=== PATIENT | female | born 2005 | race Caucasian/White ===

== ENCOUNTER 2023-02-20 08:12 | Outpatient (CLI) | payer BC, SELFPAY ==
--- NOTE | 2023-02-20 08:15 | CRLHL7_ITS ---
For Patients: As a result of the Cures Act, medical imaging exams and procedure reports are released immediately into your electronic medical record. You may view this report before your referring provider. If you have questions, please contact your health care provider. INDICATION: First trimester scan, establish dates. COMPARISON: None. TECHNIQUE: Real-time murrell-scale imaging of the pelvis was performed. FINDINGS: Sonographic imaging demonstrates a single living intrauterine gestation. The embryo demonstrates a regular cardiac rate measuring 167 beats per minute. The embryo`s crown-rump length measurement of 1.9 cm corresponds to a gestational age of 8 weeks 3 days with a sonographic due date of 09/29/2023. There is a normal-appearing yolk sac. There are no gross abnormalities noted within the embryo at this early state of development. The gestational sac has a normal appearance. There is no evidence of a perigestational hemorrhage. The amount of fluid within the sac appears appropriate for gestational age. The cervix is closed. The myometrium appears normal. The ovaries are of normal size. Corpus luteal cyst right ovary. There are no suspicious fluid collections noted in the cul-de-sac. IMPRESSION: Normal first trimester OB ultrasound exam. Gestational age calculated at 8 weeks 3 days with a sonographic due date of 09/29/2023. Dictated by Phong Charles MD @ 02/20/2023 9:04:40 AM (Electronically Signed)
== END 2023-02-20 08:13 | disposition home or self-care (01) ==
LOC: US 08:16
PROVIDERS: Visit Provider Registered Nurse
DX: Z34.91 Encounter for supervision of normal pregnancy, unspecified, first trimester (principal); Z3A.09 9 weeks gestation of pregnancy
CPT/HCPCS: 76817; 86703; 86803; 86850; 86900; 86901; 87340; 87491; 87591

== ENCOUNTER 2023-04-16 10:43 | Outpatient (CLI) | payer BC, SELFPAY | END 2023-04-16 10:44 | disposition home or self-care (01) | LOC: NFLDREF 04-17 07:32 | PROVIDERS: Visit Provider Obstetrics & Gynecology | DX: Z34.92 Encounter for supervision of normal pregnancy, unspecified, second trimester (principal); R82.71 Bacteriuria; Z3A.16 16 weeks gestation of pregnancy | CPT/HCPCS: 87086; 87186 ==

== ENCOUNTER 2023-05-15 12:11 | Outpatient (CLI) | payer BC, SELFPAY ==
--- NOTE | 2023-05-15 12:15 | CRLHL7_ITS ---
For Patients: As a result of the Century Cures Act, medical imaging exams and procedure reports are released immediately into your electronic medical record. You may view this report before your referring provider. If you have questions, please contact your health care provider. INDICATION: Evaluate anatomy. COMPARISON: 02/20/2023 TECHNIQUE: Real time murrell scale imaging of the fetus was performed as well as color Doppler analysis of the umbilical vessels. FINDINGS: Sonographic imaging demonstrates a single living intrauterine gestation. Fetus demonstrates a regular cardiac rate of 147 beats per minute. Fetus has a variable position. The placenta lies fundal posterior without evidence of placenta previa. The edge of the placenta is located 6.9 cm from the internal cervical os. Amniotic fluid volume appears normal. Single deepest vertical pocket: 4.8 cm. The cervix is closed and measures 3.7 cm in length. The composite ultrasound gestational age is calculated at 20 weeks 1 day with an estimated sonographic due date of 10/01/2023. The estimated weight is 327 grams which lies at the 24th %. The following biometric measurements were obtained: Biparietal diameter: 4.7 cm/20 weeks 2 days 44th% Head circumference: 17.6 cm/20 weeks 1 day 27th% Abdominal circumference: 14.8 cm/20 weeks 0 days 31st% Femur length: 3.2 cm/20 weeks 0 days 26th% The HC/AC ratio measures: 1.19 range (1.07-1.25) On anatomic survey, there is a normal appearance of the cerebral ventricles, cavum septi pellucidi, cisterna magna and cerebellum. The nose, lips, and facial profile appear normal. The cervical, thoracic and lumbar spine are well visualized and appear normal. There is a normal four-chamber heart view and the left and right ventricular outflow tracts appear normal. The diaphragm and stomach appear normal. The bladder is normal. Pelviectasis noted bilaterally measuring 4 millimeters. There is a normal three-vessel cord and cord insertion site. The four extremities appear normal. IMPRESSION: Bilateral renal pelviectasis measuring 4 millimeters. Remainder of the anatomic survey is normal. Follow-up in the 3rd trimester recommended. Concordance of clinical and sonographic dating. Remainder of the anatomic survey is normal. Dictated by Phong Charles MD @ 05/16/2023 10:03:58 AM (Electronically Signed)
== END 2023-05-15 12:12 | disposition home or self-care (01) ==
LOC: US 12:11
PROVIDERS: Visit Provider Obstetrics & Gynecology
DX: Z34.92 Encounter for supervision of normal pregnancy, unspecified, second trimester (principal); Z3A.20 20 weeks gestation of pregnancy
CPT/HCPCS: 76805; 87086

== ENCOUNTER 2023-07-24 10:19 | Outpatient (CLI) | payer BC, SELFPAY | END 2023-07-24 10:20 | disposition home or self-care (01) | LOC: NFLDREF 10:20 | PROVIDERS: Visit Provider Advanced Practice Midwife | DX: O26.893 Other specified pregnancy related conditions, third trimester (principal); Z67.91 Unspecified blood type, Rh negative; Z3A.29 29 weeks gestation of pregnancy | CPT/HCPCS: 86592; 86850; J2791 ==

== ENCOUNTER 2023-07-31 09:42 | Outpatient (CLI) | payer BC, SELFPAY ==
--- NOTE | 2023-07-31 09:45 | CRLHL7_ITS ---
For Patients: As a result of the Century Cures Act, medical imaging exams and procedure reports are released immediately into your electronic medical record. You may view this report before your referring provider. If you have questions, please contact your health care provider. OB ULTRASOUND, 07/31/2023 NIURKA by US: 09/29/2023. GA: 31 w, 3 d. Single. INDICATION: Encounter for supervision of normal first . CERVIX: Not visualized. POSITIONING: Vertex. AMNIOTIC FLUID: 4.7 cm. PLACENTA: Technique: Transabdominal. PLACENTA POSITION: Anterior. DOPPLER: heart rate: 143 bpm. Biometry: BPD: 8.0 cm. 32 w, 0 d, 57 percent. HC: 29.1 cm. 32 w, 0 d, 30 percent. AC: 27.6 cm. 31 w, 5 d, 55 percent. FL: 6.0 cm. 31 w, 1 d, 29 percent. FL/AC ratio: 21.69 percent. HC/AC ratio: 1.05. EFW: 1797 g. Weight: 3 lbs, 15 oz. age by this US: 31 w, 5 d. NIURKA by this US: 09/27/2023. Percentile by NIURKA: 43 percent. COMMENT: Bilateral renal pelves measure 2 mm currently. IMPRESSION: Single live intrauterine gestation. Renal pelves bilaterally measure 2 mm currently. No findings for pelviectasis. Priscila Goodwin M.D. Diagnostic/Breast Radiologist [email or web address] LAVERNE/rolly lofton/Dictated by: Priscila Goodwin MD @ 08/02/2023 8:19:00 AM (Electronically Signed)
== END 2023-07-31 09:43 | disposition home or self-care (01) ==
LOC: US 09:42
PROVIDERS: Visit Provider Advanced Practice Midwife
DX: Z34.03 Encounter for supervision of normal first pregnancy, third trimester (principal); Z3A.31 31 weeks gestation of pregnancy
CPT/HCPCS: 76816

== ENCOUNTER 2023-08-11 06:32 | Emergency (ER) | payer BC, SELFPAY ==
[2023-08-11 06:54] VITALS: BP 121/72; PULSE 112; RESP 16; TEMP 36.7; O2SAT 99; BMI 27.5
--- NOTE | 2023-08-11 07:18 | ED.GENADULT ---
HPI - General Adult General Chief complaint: Cough Stated complaint: cough, trouble breathing Time Seen by Provider: 08/11/23 07:18 History of Present Illness HPI narrative: Reporting a cold for a week . Last night coughing increased and SOB, became difficult at times. Endorsing a HERNANDEZ. Mucus production, clear/greenish. No at home COVID tests. No underlying pulm conditions . Pt is , 33 weeks 17-year-old young woman presenting to the emergency department concern of cough. Related Data Home Medications Medication Instructions Recorded Confirmed acetaminophen 500 mg tablet 1,000 mg PO Q6H PRN 02/20/23 08/11/23 (Tylenol Extra Strength) docosahexaenoic acid 200 mg mg PO 02/20/23 07/31/23 capsule ( DHA) Previous Rx's Medication Instructions Recorded sertraline 100 mg tablet 100 mg PO QDAY #90 tabs 04/16/23 metoclopramide HCl 10 mg tablet 10 mg PO Q6-8H PRN headache #20 07/17/23 (Reglan) tabs Allergies Allergy/AdvReac Type Severity Reaction Status Date / Time No Known Drug Allergies Allergy Verified 08/11/23 07:00 [facility] Medical History Asthma ?J45.909 - Unspecified asthma, uncomplicated (ICD-10) Social History Narrative: Lives in [place]. Works at [employer]. Smoking Status: Never smoker Little interest or pleasure in doing things: several days Feeling down, depressed, or hopeless: several days Exam Const: Vital Signs, click to edit/add: Vital Signs - 24 hr 08/11/23 06:54 Temperature 98.1 F Pulse Rate [Pulse Oximeter] 112 H Respiratory Rate 16 Blood Pressure [Ri ght Upper Arm] 121/72 Pulse Oximetry 99 Oxygen Delivery Me thod Room Air Course Vital Signs Vital signs: Initial Vital Signs Temperature 98.1 F 08/11/23 06:54 Temperature Source Temporal Artery Scan 08/11/23 06:54 Pulse Rate 112 H 08/11/23 06:54 Respiratory Rate 16 08/11/23 06:54 Blood Pressure 121/72 08/11/23 06:54 Blood Pressure Mean 88 08/11/23 06:54 Blood Pressure Position Sitting 08/11/23 06:54 Pulse Oximetry 99 08/11/23 06:54 Oxygen Delivery Method Room Air 08/11/23 06:54 Vital Signs Temperature 98.1 F 08/11/23 06:54 Pulse Rate 112 H 08/11/23 06:54 Respiratory Rate 16 08/11/23 06:54 Blood Pressure 121/72 08/11/23 06:54 Pulse Oximetry 99 08/11/23 06:54 Oxygen Delivery Method Room Air 08/11/23 06:54 Temperature 98.1 F 08/11/23 06:54 Pulse Rate 112 H 08/11/23 06:54 Respiratory Rate 16 08/11/23 06:54 Blood Pressure 121/72 08/11/23 06:54 Pulse Oximetry 99 08/11/23 06:54 Oxygen Delivery Method Room Air 08/11/23 06:54 Discharge Plan Discharge Prescriptions: No Action DHA 200 mg capsule PO acetaminophen [Tylenol Extra Strength] 500 mg tablet 1,000 mg PO Q6H PRN sertraline 100 mg tablet 100 mg PO QDAY Qty: 90 0RF metoclopramide HCl [Reglan] 10 mg tablet 10 mg PO Q6-8H PRN (Reason: headache) Qty: 20 0RF Rx Instructions: Take with Tylenol. Follow Up/Referrals: Provider,Not a Local [Primary Care Provider] -
--- NOTE | 2023-08-11 07:45 | ED_ITS ---
HPI - General Adult General Time Seen by Provider: 07:45 Date Seen: 08/11/23 Chief complaint: Cough Stated complaint: cough, trouble breathing Time Seen by Provider: 08/11/23 07:18 Source: patient Mode of arrival: ambulatory Limitations: no limitations History of Present Illness HPI narrative: Patient is 17-year-old female who is about 33 weeks with anxiety depression history of migraine scoliosis, has a history of upper respiratory infection symptoms for the last week she has had runny nose congestion clear to greenish mucus production in her nose, she has had a cough. She has had some shortness of breath with exertion and even occasionally rest, she has no longer line lung history. She has had no history of bleeding or clotting problems , no swelling in her legs, no history of clotting. Patient has had upper respiratory symptoms over the last few days as mention. Related Data Home Medications Medication Instructions Recorded Confirmed acetaminophen 500 mg tablet 1,000 mg PO Q6H PRN 02/20/23 08/11/23 (Tylenol Extra Strength) docosahexaenoic acid 200 mg mg PO 02/20/23 07/31/23 capsule ( DHA) Previous Rx's Medication Instructions Recorded sertraline 100 mg tablet 100 mg PO QDAY #90 tabs 04/16/23 metoclopramide HCl 10 mg tablet 10 mg PO Q6-8H PRN headache #20 07/17/23 (Reglan) tabs Allergies Allergy/AdvReac Type Severity Reaction Status Date / Time No Known Drug Allergies Allergy Verified 08/11/23 07:00 Review of Systems Status of ROS: Reports: 6 or more systems reviewed and unremarkable except as noted in History and below [facility] Medical History Asthma ?J45.909 - Unspecified asthma, uncomplicated (ICD-10) Social History Narrative: Lives in [place]. Works at [employer]. Smoking Status: Never smoker Do you use any of these nicotine containing products: None How often do you have a drink containing alcohol: never How often do you have six or more drinks on one occasion: Never AUDIT-C Alcohol total score: 0 Non-prescribed substance use: denies use Little interest or pleasure in doing things: several days Feeling down, depressed, or hopeless: several days Exam Narrative: Exam Narrative: Objective: Vital signs are within normal limits, no temperature, O2 sat is 99% on room air HEENT is unremarkable Neck is normal Lungs are clear no rales or wheezing Heart rhythm regular no murmur No extremity swelling or edema, specifically no leg edema or swelling or tenderness Const: Vital Signs, click to edit/add: Vital Signs - 24 hr 08/11/23 06:54 Temperature 98.1 F Pulse Rate [Pulse Oximeter] 112 H Respiratory Rate 16 Blood Pressure [Ri t Upper Arm] 121/72 Pulse Oximetry 99 Oxygen Delivery Me thod Room Air Course Vital Signs Vital signs: Initial Vital Signs Temperature 98.1 F 08/11/23 06:54 Temperature Source Temporal Artery Scan 08/11/23 06:54 Pulse Rate 112 H 08/11/23 06:54 Respiratory Rate 16 08/11/23 06:54 Blood Pressure 121/72 08/11/23 06:54 Blood Pressure Mean 88 08/11/23 06:54 Blood Pressure Position Sitting 08/11/23 06:54 Pulse Oximetry 99 08/11/23 06:54 Oxygen Delivery Method Room Air 08/11/23 06:54 Vital Signs Temperature 98.1 F 08/11/23 06:54 Pulse Rate 112 H 08/11/23 06:54 Respiratory Rate 16 08/11/23 06:54 Blood Pressure 121/72 08/11/23 06:54 Pulse Oximetry 99 08/11/23 06:54 Oxygen Delivery Method Room Air 08/11/23 06:54 Temperature 98.1 F 08/11/23 06:54 Pulse Rate 112 H 08/11/23 06:54 Respiratory Rate 16 08/11/23 06:54 Blood Pressure 121/72 08/11/23 06:54 Pulse Oximetry 99 08/11/23 06:54 Oxygen Delivery Method Room Air 08/11/23 06:54 Medical Decision Making MDM Narrative Medical decision making narrative: [age] year white female about 33 weeks with upper respiratory infection symptoms congestion, cough. At this point I think given her lungs exam is clear no O2 sat is 99% I would recommended influenza/COVID/RSV test. We can call them with results when they can update her OBGYN with the results and report. Recommend steam, showers, symptomatic measures, hot fluids. Patient reports her baby's been active, no vaginal bleeding. Recommend follow up by phone with OB in next 48 hours. Return to ED sooner problems concerns worsening. Given the history upper respiratory infection and I do not feel concerned about PE or other intrapulmonary process. I think the benefit of doing an x-ray would be outweighed by the risk of radiation and I do not think that is necessary at this time. We will call them with results of their viral studies. Light activity recommend Lab Data Labs: Lab Results 08/11/23 Range/Units 07:47 SARS-CoV-2 (PCR) POSITIVE SARS-CoV-2 A (Negative) Influenza Type A (PCR) Negative PCR FLU A (Negative) Influenza Type B (PCR) Negative PCR FLU B (Negative) RSV (PCR) Negative PCR RSV (Negative) Discharge Plan Discharge Clinical Impression: Acute upper respiratory infection, Cough, Patient Disposition: Home w/ Parent or Adult Condition: Stable Additional Instructions: Rest, light activity, fluids, steam symptomatic measures such as getting in the shower to 3 times a day. We will call back with results here viral studies, you can update your regular OBGYN with those results as needed. Recommend you follow-up with OBGYN by phone within the next 48 hours for reassessment recommendations. Return to ED sooner problems or concerns Activity Level: Light activity Discharge Diet: Regular Prescriptions: No Action DHA 200 mg capsule PO acetaminophen [Tylenol Extra Strength] 500 mg tablet 1,000 mg PO Q6H PRN sertraline 100 mg tablet 100 mg PO QDAY Qty: 90 0RF metoclopramide HCl [Reglan] 10 mg tablet 10 mg PO Q6-8H PRN (Reason: headache) Qty: 20 0RF Rx Instructions: Take with Tylenol. Follow Up/Referrals: Provider,Not a Local [Primary Care Provider] - Stand Alone Forms: [employer] Info Instructions
[2023-08-11 08:34] LABS: PCR FLU A Negative PCR FLU A (Negative); PCR FLU B Negative PCR FLU B (Negative); PCR RSV Negative PCR RSV (Negative)
[2023-08-11 08:37] LABS: SARS PCR* POSITIVE SARS-CoV-2 (Negative)
--- NOTE | 2023-08-11 09:42 | ED.NURSE ---
PT contacted this AM at 0940 hours to confirm that she was COVID positive. Advised to reach out to her OB for advise on how to proceed with treatment. Patient stated understanding. No questions at this time.
== END 2023-08-11 08:19 | disposition home or self-care (01) ==
PROVIDERS: Emergency Provider Family Medicine
DX: J06.9 Acute upper respiratory infection, unspecified (principal); Z3A.33 33 weeks gestation of pregnancy
CPT/HCPCS: 87631; 99283

== ENCOUNTER 2023-09-04 10:11 | Outpatient (CLI) | payer BC, SELFPAY ==
[2023-09-05 10:15] LABS: Strep B DNA Probe Negative (Negative); Strep B Susceptibility Needed? No
== END 2023-09-04 10:12 | disposition home or self-care (01) ==
PROVIDERS: Visit Provider Advanced Practice Midwife
DX: Z34.93 Encounter for supervision of normal pregnancy, unspecified, third trimester (principal)
CPT/HCPCS: 87081; 87653

== ENCOUNTER 2023-10-07 06:52 | Inpatient (IN) | payer BC, SELFPAY ==
[2023-10-07] VITALS (67 sets, daily range): BP systolic 94–143; BP diastolic 44–94; PULSE 71–113; RESP 16–18; TEMP 36.4–37; O2SAT 83–100; BMI 29.9
--- NOTE | 2023-10-07 07:43 | P.LDBA_ITS ---
Subjective History of Present Illness Time Seen by Provider: 07:54 Date Seen: 10/07/23 Specific Issues/Plans G 1 P 0 Boyfriend: Jaswinder H&P done by Luis Alberto Traore CNM on 09/12/23 1. Depression and anxiety. PHQ= 15, NIMCO= 10. Declines therapy. Began sertralin e at 1st OB visit. Follow-up on mood at next OB: 04/16/23- PHQ=12. NIMCO=9. Increased sertraline to 100mg PHQ and nimco at next visit: PHQ9:5, NIMCO:6, 07/31- PHQ-12, NIMCO-12, declined change in meds or referral 09/12 readdressed mood, pt declines any change in plan Please encourage PHN visit and check on mood after delivery 2. Rh negative. Rhogam given 07/24 3. Asymptomatic bacteriuria at 1st OB: pansensitive E. coli. Treated w/ Macrobid. Repeat UC at next visit shows same isolate. Treated with Bactrim DS X 5 days . Repeat UC at 20 week visit: negative 4. Bilateral renal pelves 4 mm at 20 week anatomy scan. * Repeat US at 31.3 wks- resolved * Discussed option of NIPT on 05/17/23; may call to schedule if desired, declined. 5. Gap in visits no visit for 9 weeks late GCT-124 6.Anemia Hgb 10.1 at 30 weeks recommended iron supp QOD 7. Scoliosis dx as child no need for intervention per pt. COVID: Not vaccinated. Recommended. Declines 07/31/2023 Flu: declines TDAP: 07/17/2023 RSV: 09/04/2023 Comments: Karla is being admitted to Labor and Delivery for IOL for dates. She is a 17 year old G 1 P 0 at?41.1 weeks gestation. Her full history and physical was dictated by Cherelle Traore on 09/12/23. Please see this for details. Her partner is with her for support. She is undecided about pain management, but open to an epidural if needed. OB - Problem Based A/P Additional Plan (1) Encounter for induction of labor: Status: Acute (2) Supervision of normal first : Status: Acute (3) Anxiety and depression: Status: Acute (4) Scoliosis (and kyphoscoliosis), idiopathic: Status: Chronic Plan Assessment:?? at 41.1 weeks gestation?? GBS negative? IOL for dates complicated by: -depression & anxiety, treated with 100 mg of sertraline -gap in care, no visit X 9 weeks -anemia Labor complicated by: -scoliosis, diagnosed as a child, no interventions needed? ? Plan:?? * Admit to L & D? * Options reviewed, decision made to proceed with cytotec IOL at this time. * IV access: if needed per protocol or if epidural desired * Monitoring: Per protocol. * Candidate for analgesia of choice.? Undecided about pain management, but open to epidural if needed. * Anticipate progress to NVD Delivery/Labor/Induction Plan Plan: induction Induction method: per misoprostol protocol OB Exam Physical Exam Vital signs: Pulse BP Pulse Ox 102 H 130/80 98 10/07/23 07:23 10/07/23 07:23 10/07/23 07:26 Narrative: VSS, afebrile? General Appearance:? Calm, cooperative.? No acute distress.? Normal affect.? Psychiatric Exam: Alert and oriented, appropriate affect? HEENT: normocephalic, neck supple, full ROM? Respiratory:? Symmetrical chest wall movement.? Normal respiratory effort.? Clear to auscultation? Cardiac:? regular rate and rhythm? Abdomen: Gravid, non tender? Extremities:? normal and trace edema? Skin: warm, dry.??? Ctx:? mild, irregular madalyn mandeep ctx FHTs:? Baseline: 130.? Variability: min - mod.?? Accels: present.??? Decels:? rare late & early, resolved w/ position change SVE: FT, 0 station. Cervix posterior. ? Membranes: intact?? Detailed Labor and Delivery Exam Patient Gravid: Yes
[2023-10-07] MEDS: miSOPROStoL 25 MCG/0.25 TABLET VAGINAL ×2 (08:34→11:42)
--- NOTE | 2023-10-07 16:09 | PM.OBPNL ---
Subjective Time Seen by Provider: 15:45 Date Seen: 10/07/23 Narrative: Karla continues to feel frequent contractions, that have become stronger throughout the day. She has had 2 doses of cytotec, and the 3rd dose is due at this time. She is requesting pain medication, and we reviewed the options, including risks and benefits. Her partner and family are at bedside for support. Objective Exam: VSS, afebrile General Appearance:? Calm, cooperative. No acute distress. ? Psychiatric Exam: Alert and oriented, appropriate affect Abdomen: Gravid Ctx: ?Q 1-3 min apart. ?Mild - Moderate FHTs: Baseline: 145. Variability: moderate. Accels: present. Decels: none at this time. Rare late or variable noted earlier, appears to be r/t a specific position per RN. SVE: /0. mid position. Membranes: Intact ? Vital Signs: Last Vital Signs Temp 98.1 F 10/07/23 11:47 Pulse 107 H 10/07/23 15:47 Resp 16 10/07/23 11:47 BP 135/86 10/07/23 15:47 Pulse Ox 98 10/07/23 07:26 Plan Plan: Assessment:?? at 41.1 weeks gestation?? GBS negative? IOL for dates Patient is coping well with challenges of labor.?? Labor type: Induced, Early labor? complicated by: -depression & anxiety, treated with 100 mg of sertraline -gap in care, no visit X 9 weeks -anemia Labor complicated by: -scoliosis, diagnosed as a child, no interventions needed? ? Plan:?? Karla encouraged to try movement, tub, fentynal or nitrous at this time. Will place IV access. Epidural when desired. Hold 3rd cytotec dose at this time. She is aware to notify RN/CNM if contractions space out or decrease in intensity. Will continue to monitor for cervical change. Continue with routine intrapartum cares as ordered.?? Patient encouraged to move and change positions to promote physiologic labor and .?? Anticipate progress to NVD.
[2023-10-07 16:27] LABS: Basophils Percent Auto 0.3 % (0.0-3.0); Eosinophils Percent Auto 0.6 % (0.0-7.0); Hematocrit 31.7 % (33.0-51.0); Hemoglobin* 10.1 gm/dL (12.0-16.0); Immature Granulocytes Pct Auto 0.5 %; Lymphocytes Percent Auto 11.7 % (20-44); Mean Corpuscular HGB Conc 32 gm/dL (32-36); Mean Corpuscular Hemoglobin 26 pg (26-34); Mean Corpuscular Volume 82 fL (80-100); Monocytes Percent Auto 7.4 % (0.0-11.0); Neutrophils Percent Auto 79.5 % (42.0-72.0); RDW Coefficient of Variation % 13.7 % (11.5-15.5); Red Blood Count 3.87 m/uL (4.00-5.20); White Blood Count* 13.05 K/uL (4.50-11.00)
[2023-10-07] MEDS: fentaNYL 100 MCG/2 ML inj IVP (16:33)
[2023-10-07 16:59] LABS: Slide Review Reflex Yes
[2023-10-07 17:00] LABS: Slide Review Acceptable Review (Acceptable)
[2023-10-07] MEDS: LACTATED RINGERS 1000 ML 1,000 ML 1200 ML IV ×2 (17:39→18:31)
[2023-10-07] MEDS: ROPIVACAINE 0.2% 100 ml 100 ML 12 MG EPIDURAL (18:09)
--- NOTE | 2023-10-07 18:18 | PM.ANBPRC ---
[facility] Medical History Asthma ?J45.909 - Unspecified asthma, uncomplicated (ICD-10) Social History Narrative: Lives in [place]. Works at [employer]. What is your current living situation?: I presently have a place to live Problems where you live: no known problems In the past 12 months, utilities in danger of being shut off: no In past 12 months, lack of transportation kept you from medical appts, meetings, work, or getting things needed for daily living: no In the past 12 mos, have been you worried that your food would run out before you had money to buy more?: never true In the past 12 mos, the food you bought just didn't last and you didn't have money to buy more?: never true Smoking Status: Never smoker Do you use any of these nicotine containing products: None How often do you have a drink containing alcohol: never How often do you have six or more drinks on one occasion: Never AUDIT-C Alcohol total score: 0 Non-prescribed substance use: denies use How often does anyone, including family, friends and others, physically hurt you: never How often does anyone, including family, friends and others, insult or talk down to you: never How often does anyone, including family, friends and others, threaten you with harm: never How often does anyone, including family, friends and others, scream or curse at you: never Little interest or pleasure in doing things: several days Feeling down, depressed, or hopeless: several days Meds Home Medications and Allergies Home Medications Medication Instructions Recorded Confirmed Type acetaminophen 500 mg tablet 1,000 mg PO Q6H PRN 02/20/23 10/07/23 History (Tylenol Extra Strength) docosahexaenoic acid 200 mg 200 mg PO 02/20/23 10/02/23 History capsule ( DHA) Allergies Allergy/AdvReac Type Severity Reaction Status Date / Time No Known Drug Allergies Allergy Verified 10/07/23 07:30 Results Labs Labs: Laboratory Results - last 24 hr 10/07/23 16:18 WBC 13.05 H RBC 3.87 L Hgb 10.1 L Hct 31.7 L MCV 82 MCH 26 MCHC 32 RDW Coeff of [place] 13.7 Plt Count Not Reportable Neut % (Auto) 79.5 H Lymph % (Auto) 11.7 L [place] % (Auto) 7.4 Eos % (Auto) 0.6 Baso % (Auto) 0.3 Neut # (Auto) 10.40 H Lymph # (Auto) 1.50 [place] # (Auto) 1.00 H Eos # (Auto) 0.10 Baso # (Auto) 0.00 Abs Immat Gran (auto) 0.10 Imm/Tot Granulo (auto) 0.5 Diff Slide Review Acceptable Review Blood Type A Negative Antibody Screen POSITIVE Vital Signs Vital Signs: Last Vital Signs Temp 98.6 F 10/07/23 15:47 Pulse 87 10/07/23 18:17 Resp 18 10/07/23 15:47 BP 126/73 10/07/23 18:17 Pulse Ox 99 10/07/23 18:15 Weight: 79.288 kg Height: 162.56 cm Anesthesia Procedures Epidural Insertion Patient Location: OB Start Time: 17:30 Stop Time: 18:15 Start Date: 10/07/23 Stop Date: 10/07/23 Reason for Block: procedure for pain Patient Position: sitting Performed By: Ena Pandya Preanesthetic Checklist: IV checked, risks and benefits discussed, monitors and equipment checked, timeout performed and anesthesia consent Prep: chlorhexidine gluconate Monitoring: blood pressure monitoring, continuous pulse oximetry and heart rate Approach: midline Vertebral Space: lumbar (1-5) Epidural Technique: SEGUN saline Needle Type: Tuohy needle Injection Technique: continuous catheter Needle gauge: 17 Needle Length (cm): 10 cm Needle Insertion Depth (cm): 7 Catheter Gauge: 19 Catheter Type: multi-orifice Catheter at skin depth (cm): 13 Test Dose Result: negative and lidocaine 1.5% with epinephrine 1 to 200,000
[2023-10-07] MEDS: PHENYLEPHRINE 100 MCG/ML SYRINGE IVP ×4 (20:23→21:18)
[2023-10-07 20:26] LABS: Platelet Count* 209 K/uL (140-440)
[2023-10-07] MEDS: LACTATED RINGERS 1000 ML 1,000 ML 1145 ML IV ×2 (21:06→22:40)
--- NOTE | 2023-10-07 21:11 | P.OBPN_ITS ---
Subjective Time Seen by Provider: 21:11 Date Seen: 10/07/23 Narrative: Karla received her epidural, and then late decelerations were noted. Attempted to turn pt, and 3-4 min decel occurred, tal 70s. Pt helped to hands and knees, and fetus noted to be tachycardic with variable & late decels. RNs attempted to reposition pt, and another 4 min decel occurred, tal 80s. SROM, large amount of clear fluid occurred during this also. SVE repeated, 4100/-1 station. IUPC and scalp lead placed to better monitor. Dr. Luis Metzger and OR team also called in for possible . Pt also received multiple doses of phenylephrine during this and fluid bolus. FHTs now 145 with minimal va riability, late and early decelerations. Objective Exam: VSS, afebrile General Appearance:? Calm, cooperative. No acute distress. ? Psychiatric Exam: Alert and oriented, appropriate affect Abdomen: Gravid Ctx: ?Q 1-3 min apart. ? Moderate FHTs: Baseline: 145. Variability: minimal. Accels: none. Decels: Late, early and prolonged decels noted. SVE: /-1 Membranes: SROM, clear fluid. ? Vital Signs: Last Vital Signs Temp 98.4 F 10/07/23 19:16 Pulse 71 10/07/23 21:07 Resp 16 10/07/23 19:16 BP 107/56 L 10/07/23 21:07 Pulse Ox 99 10/07/23 20:29 Plan Plan: Assessment:?? at 41.1 weeks gestation?? GBS negative? IOL for dates Patient is coping well with challenges of labor.?? Labor type: Induced, Early labor? complicated by: -depression & anxiety, treated with 100 mg of sertraline -gap in care, no visit X 9 weeks -anemia Labor complicated by: -scoliosis, diagnosed as a child, no interventions needed? -late decelerations, periods of tachycardia, 2 prolonged decelerations. ? Plan:?? Dr. Luis Metzger called in with OR team to assess for . Pt and family aware of plan. IUPC and scalp lead placed to assess decels better and allow for positioning as needed while still tracing FHR. Will continue to monitor for decels and reposition as needed.
[2023-10-07] MEDS: CEFAZOLIN 2 GM INJ IVP (21:33)
--- NOTE | 2023-10-07 21:46 | P.OBCN_ITS ---
OB - CN: HPI Date of Consult Time Seen by Provider: 21:46 Date Seen: 10/07/23 Patient: [facility] Patient Consult date: 10/07/23 Requesting Physician: Beth Nassar CNM Primary Care Provider: Not a Local Provider Consult Narrative Reason for consult: nonreassuring FHTs Narrative: The patient is a 17 year old G 1 P 0 at 41 weeks 1 day gestation that was admitted to the Center on 10/07/23 for induction of labor for postdates. In the last hour the fetus has had repetitive late decelerations with minimal variability. Since being on the unit the baby has had now had marked variability with continued late decelerations. Recommended primary low- transverse for nonreassuring heart rate tracing. Consent form reviewed and signed. Please see Beth Nassar's notes for complete details. History History 1 Elective abortions Para 0 Spontaneous abortions Hx # Term Pregnancies Ectopic pregnancies Hx # Pregnancies Multiple births Number of Living Children 0 Labs Blood type: A (-) negative GBS status: negative OB Labs: Lab Assessment Start: 10/07/23 07:32 Freq: ONCE Status: Complete Protocol: [facility].OBGBS Activity Type Activity Date Activity User E-sign Co-sign Detail Recorded Client Recorded Date Recorded By Document 10/07/23 07:32 LG [id number] 10/07/23 07:35 LG 10/07/23 07:32 Lab Assessment GBS Status negative GBS Additional Criteria None Is Patient Allergic to Penicillin? No No Treatment Needed OK Are Labs Available Yes Maternal Blood Type A Maternal RH Factor Negative Evaluate Maternal Rubella Immune Status Immune Hepatitis B Surface Antigen Negative Maternal HIV Status Negative Maternal Syphillis (RPR) Status Negative [facility] Medical History (Updated 10/07/23 @ 21:49 by Ignacia Chand MD) Asthma ?J45.909 - Unspecified asthma, uncomplicated (ICD-10) Surgical History (Updated 10/07/23 @ 21:49 by Ignacia Chand MD) Status post primary low transverse section (10/07/23) ?Z98.891 - History of uterine scar from previous surgery (ICD-10) Social History Narrative: Lives in [place]. Works at [employer]. What is your current living situation?: I presently have a place to live Problems where you live: no known problems In the past 12 months, utilities in danger of being shut off: no In past 12 months, lack of transportation kept you from medical appts, meetings, work, or getting things needed for daily living: no In the past 12 mos, have been you worried that your food would run out before you had money to buy more?: never true In the past 12 mos, the food you bought just didn't last and you didn't have money to buy more?: never true Smoking Status: Never smoker Do you use any of these nicotine containing products: None How often do you have a drink containing alcohol: never How often do you have six or more drinks on one occasion: Never AUDIT-C Alcohol total score: 0 Non-prescribed substance use: denies use How often does anyone, including family, friends and others, physically hurt you : never How often does anyone, including family, friends and others, insult or talk down to you: never How often does anyone, including family, friends and others, threaten you with harm: never How often does anyone, including family, friends and others, scream or curse at you: never Little interest or pleasure in doing things: several days Feeling down, depressed, or hopeless: several days Meds Home Medications and Allergies Home Medications Medication Instructions Recorded Confirmed Type acetaminophen 500 mg tablet 1,000 mg PO Q6H PRN 02/20/23 10/07/23 History (Tylenol Extra Strength) docosahexaenoic acid 200 mg 200 mg PO 02/20/23 10/02/23 History capsule ( DHA) Allergies Allergy/AdvReac Type Severity Reaction Status Date / Time No Known Drug Allergies Allergy Verified 10/07/23 07:30 OB - H&P: Exam Physical Exam: Vital signs: Temp Pulse Resp BP Pulse Ox 98.3 F 85 17 112/57 L 99 10/07/23 21:03 10/07/23 21:41 10/07/23 21:03 10/07/23 21:41 10/07/23 20:29 Narrative: See Beth Nassar's notes for complete details. OB - Results Labs Labs: Short CBC 01/01/24 01/01/24 Range/Units 16:18 19:36 WBC 13.05 H (4.50-11.00) K/uL Hgb 10.1 L (12.0-16.0) gm/dL Hct 31.7 L (33.0-51.0) % Plt Count Not Reportable 209 OB - CN: A/P Assessment and Plan (1) Encounter for induction of labor: Status: Acute (2) Supervision of normal first : Status: Acute (3) Anxiety and depression: Status: Acute (4) Scoliosis (and kyphoscoliosis), idiopathic: Status: Chronic (5) intolerance to labor, delivered, current hospitalization: Status: Acute (6) Status post primary low transverse section: Problem details: Girl. Status: Acute Plan 1. Reviewed recommendation for primary low-transverse , consent form reviewed and signed.
[2023-10-07] MEDS: AZITHROMYCIN 500 MG in 0.9 % SODIUM CHLORIDE 250 ml 250 ML 255 MG IVPB (21:59)
--- NOTE | 2023-10-07 21:59 | P.PCN_ITS ---
Procedure Note Time Seen by Provider: 22:58 Date Seen: 10/07/23 Date of procedure: 10/07/23 Will [facility] bill your pro fee for this procedure?: Yes Procedure: Preoperative diagnosis: 17-year-old 1 para 0 at 41 and 1/7 weeks with nonreassuring heart rate tracing Postoperative diagnosis: Same Procedure: Primary low-transverse section Anesthesia: Epidural Surgeon: Ignacia Chand MD Travel Med Surg Rn: Not applicable Quantitative blood loss: 1210 mL IV Fluid: 1300 mL UOP: 300 mL Specimen: Placenta to pathology Drain(s): Miranda to gravity Findings: A live female was delivered from the direct OP position at 10:16 p.m. Apgars were 8 at 1 min and 9 at 5 min, respectively. Infant weight: 7 lb 15 oz. Nuchal cord(s): No. The placenta was delivered spontaneously and complete at 10:18 p.m. Amniotic fluid: Clear. Normal uterus, fallopian tubes and ovaries were noted. Other findings: Significant uterine atony after delivery of the placenta treated with 40 units Pitocin in 1 L IV fluid wide open, 1 dose Methergine 0.2 mg IM and Bakri balloon placement with 200 mL of saline. Procedure: Karla was taken to the OR where epidural anesthetic was found be adequate. A Miranda catheter was placed. The patient was then placed in the dorsal supine position with a leftward tilt. She was then prepped and draped in a normal sterile manner. A Pfannenstiel skin incision was made and carried through sharply to the underlying layer of fascia. Fascia was incised in the midline and this incision carried laterally with Cummins scissors. The superior aspect of fascial incision was grasped with Lc clamps, tented up, and the rectus muscles dissected off with a combination of blunt and sharp dissection. The inferior aspect of the fascial incision not dissected off the rectus muscles. The rectus muscles were in the midline. The peritoneum was entered bluntly. This opening was extended bluntly. An Cecil-O self-retaining retractor was placed. A bladder flap was not created. Uterus was incised in a low transverse manner in the midline. This incision carried laterally with blunt pressure on the inferior and superior aspects of the uterine incision. The amniotic sac was ruptured. The infant's head and body was delivered atraumatically. The cord was clamped 35 seconds after delivery. The infant was shown to the patient and her support person and then handed to waiting pediatric and nursing staff. The placenta was delivered spontaneously. The uterus was cleared of clots and debris. Uterine atony was noted with treatment stated in findings above. The uterine incision was re-approximated with the uterus in vivo. The 1st layer using 0-Vicryl in a running, locked manner. The 2nd layer using 0-Monocryl in a running, vertical, imbricating layer. Additional sutures needed for hemostasis: Yes, 1 suture of 2-0 chromic in a figure of X manner.. Excellent hemostasis was verified. The Cecil retractor was removed. The rectus muscles were not reapproximated. The rectus muscles were then closely inspected to verify hemostasis. Hemostasis was obtained with bipolar cautery. The fascia was then re-approximated using 0-Maxon loop in a running manner. The subcutaneous tissue was then irrigated with saline and hemostasis obtained with bipolar cautery. The subcutaneous tissue was re-approximated using 3-0 plain gut in a running manner. The skin was reapproximated using 4-0 Monocryl in a running subcuticular manner. Exofin skin adhesive and a Mepilex dressing were applied. The patient tolerated this procedure well. Sponge, lap and instrument counts were correct x2 active to the procedure. Patient was taken to the recovery area in stable condition. The patient received 2 g of IV Ancef and 500 mg azithromycin IV to prior``````````` skin incision.
--- NOTE | 2023-10-07 22:12 | W.ANESCHARGE ---
Anesthesia Charges Start Date/Time Anesthesia Start Date: 10/07/23 Anesthesia Start Time: 21:50 Stop Date/Time Anesthesia Stop Date: 10/07/23 Anesthesia Stop Time: 23:20 Summary Emergency: [employer]
[2023-10-07] MEDS: KETOROLAC 30 MG/ML inj IVP (22:41)
--- NOTE | 2023-10-07 22:47 | P.NB_ITS ---
Nerve Block Nerve Block Time Seen by Provider: 23:02 Date Seen: 10/07/23 Type of block requested by surgeon for post-operative analgesia: TAP Side: bilateral Time out performed: Yes Verification of patient name: Yes Verification of date of : Yes Name of person performing procedure: Henriettauc Continuous monitoring Was continuous monitoring of O2 sat, B/P, monitoring manager, recorded every 15 minutes?: Yes Procedure Checklist: sterile prep, needles and gloves Ultrasound guided. Images saved: Yes Medications given in 5ml increments after negative aspiration: Marcaine %: 0.25 mL: 30 Needle gauge: 21 and Exparel mL: 10 Needle gauge: 21 Patient tolerated procedure well: Yes Block Charges Block Charge (with Pro Fee): TAP Bilateral Use of Ultrasound Machine for Block: Yes- US Guidance/pain block
[2023-10-07] MEDS: miSOPROStoL 800 MCG/4 TABLET PR (23:05)
[2023-10-08] VITALS (39 sets, daily range): BP systolic 107–136; BP diastolic 67–90; PULSE 84–114; RESP 16; TEMP 36.6–37.8; O2SAT 97–100
[2023-10-08] MEDS: KETOROLAC 30 MG/ML inj IVP ×4 (04:16→23:10)
[2023-10-08] MEDS: ACETAMINOPHEN 500 MG TABLET 1000 MG PO (04:25)
[2023-10-08 06:50] LABS: Hemoglobin* 8.4 gm/dL (12.0-16.0)
--- NOTE | 2023-10-08 07:35 | P.OBPN_ITS ---
OB - PN:Subj Subjective Date Seen: 10/08/23 Patient comments OB post-: no complaints, pain well controlled and tolerating diet infant status: and doing well Narrative: Complications:? hemorrhage. Bakri in place, to be removed at 1000 today. The patient feels well.? The pain is well controlled with current medications.? She has no new complaints.? Urinary output is adequate and she is voiding without difficulty.? Has a good appetite, is tolerating a general diet, is not passing flatus, and has not had a bowel movement.? Has scant amount of rubra lochia.? She has not yet ambulated but plans to this morning.?She is . States that overall it is going well and the last feed baby latching without difficulty. OB - PN: Obj Exam Physical Exam: Vital signs: Temp Pulse Resp BP Pulse Ox O2 Del Method 98.2 F 101 H 16 118/77 99 Room Air 10/08/23 07:20 10/08/23 07:20 10/08/23 07:20 10/08/23 07:20 10/08/23 07:20 10/08/23 07:20 Narrative: GENERAL APPEARANCE:? normal affect, alert, no distress? MOOD:? appropriate? CHEST:? clear to auscultation and percussion? HEART:? regular rate and rhythm? ABDOMEN:? soft, non-tender the uterine fundus is U/2 and is appropriate for the stage of recovery.?Incision is covered by a dressing that is clean, dry and intact. Will be removed today. EXTREMITIES:? normal and no edema? Urinary Catheter Management: Urethral: Cath placed during this visit: no Reason for continuing: epidural catheter OB - PN: Obj Data Labs Labs: Laboratory Results - last 24 hr 10/07/23 10/07/23 10/08/23 16:18 19:36 06:40 WBC 13.05 H RBC 3.87 L Hgb 10.1 L 8.4 L Hct 31.7 L MCV 82 MCH 26 MCHC 32 RDW Coeff of [place] 13.7 Plt Count Not Reportable 209 Neut % (Auto) 79.5 H Lymph % (Auto) 11.7 L [place] % (Auto) 7.4 Eos % (Auto) 0.6 Baso % (Auto) 0.3 Neut # (Auto) 10.40 H Lymph # (Auto) 1.50 [place] # (Auto) 1.00 H Eos # (Auto) 0.10 Baso # (Auto) 0.00 Abs Immat Gran (auto) 0.10 Imm/Tot Granulo (auto) 0.5 Diff Slide Review Acceptable Review Blood Type A Negative Antibody Screen POSITIVE OB - PN: A/P Delivery Assessment and Plan (1) Anxiety and depression: Status: Acute (2) Scoliosis (and kyphoscoliosis), idiopathic: Status: Chronic (3) intolerance to labor, delivered, current hospitalization: Status: Acute (4) Status post primary low transverse section: Problem details: Girl. Status: Acute (5) Lactating mother: Status: Acute (6) care following delivery: Status: Acute (7) hemorrhage: Status: Acute Plan day: 1 Plan: routine care Comments: Remove Bakri today after 1000. Ambulate today. Anticipate discharge tomorrow or the following day per patient preference.
[2023-10-08] MEDS: SERTRALINE 50 MG TABLET 100 MG PO (11:17)
[2023-10-08] MEDS: FERROUS SULFATE 325 MG TABLET PO (11:17)
[2023-10-09 00:45] VITALS: BP 106/64; PULSE 96; RESP 16; TEMP 36.8; O2SAT 97
[2023-10-09] MEDS: KETOROLAC 30 MG/ML inj IVP (05:36)
[2023-10-09 07:55] VITALS: BP 107/67; PULSE 84; RESP 16; TEMP 36.8; O2SAT 99
[2023-10-09] MEDS: SERTRALINE 50 MG TABLET 100 MG PO (08:22)
--- NOTE | 2023-10-09 08:35 | PM.OBDSVD1 ---
DS: Providers Provider Date Seen: 10/09/23 Date of admission: 10/07/23 06:52 Primary care physician: Not a Local Provider Admitting Clinician: Beth Nassar CNM Consults: 10/07/23 21:10 Consult to Physician [CONS] Stat Comment: Consulting Provider: Ignacia Chand Has provider been notified: Yes Attending Physician on discharge: Lorie Dinh CNM DS: Diagnosis Discharge Diagnosis (1) care and examination immediately after delivery: Status: Acute (2) Lactating mother: Status: Acute (3) hemorrhage: Status: Acute (4) Status post primary low transverse section: Status: Acute Problem details: Girl. Exam Narrative: Exam Narrative: GENERAL APPEARANCE:? normal affect, alert, no distress MOOD:? appropriate CHEST:? clear to auscultation HEART:? regular rate and rhythm ABDOMEN:? soft, non-tender the uterine fundus is At Umbilicus, Midline and is appropriate for the stage of recovery. EXTREMITIES:? normal and trace edema INCISION: Dressing removed; Healing well, no surrounding erythema, abnormal induration or discharge Const: Vital Signs, click to edit/add: Vital Signs - 24 hr 10/08/23 09:33 10/08/23 10:33 10/08/23 11:33 Temperature Pulse Rate [Blood Pressure Cuff] Respiratory Rate 16 16 16 Blood Pressure [Ri ght Arm] Pulse Oximetry Oxygen Delivery Me thod 10/08/23 11:44 10/08/23 12:33 10/08/23 13:33 Temperature 98.3 F Pulse Rate [Blood Pressure Cuff] 114 H Respiratory Rate 16 16 16 Blood Pressure [Ri ght Arm] 119/77 Pulse Oximetry 97 Oxygen Delivery Me thod 10/08/23 14:33 10/08/23 15:33 10/08/23 15:34 Temperature 97.9 F Pulse Rate [Blood Pressure Cuff] 100 Respiratory Rate 16 16 16 Blood Pressure [Ri ght Arm] 108/71 Pulse Oximetry 97 Oxygen Delivery Me thod Room Air 10/08/23 16:33 10/08/23 17:33 10/08/23 18:33 Temperature Pulse Rate [Blood Pressure Cuff] Respiratory Rate 16 16 16 Blood Pressure [Ri ght Arm] Pulse Oximetry Oxygen Delivery Me thod 10/08/23 19:33 10/08/23 20:33 10/08/23 21:30 Temperature 98.6 F Pulse Rate [Blood Pressure Cuff] 90 Respiratory Rate 16 16 16 Blood Pressure [Ri ght Arm] 107/67 Pulse Oximetry 98 Oxygen Delivery Me thod Room Air 10/08/23 21:33 10/08/23 22:33 10/09/23 00:45 Temperature 98.2 F Pulse Rate [Blood Pressure Cuff] 96 Respiratory Rate 16 16 16 Blood Pressure [Ri ght Arm] 106/64 Pulse Oximetry 97 Oxygen Delivery Me thod Room Air 10/09/23 07:55 Temperature 98.2 F Pulse Rate [Blood Pressure Cuff] 84 Respiratory Rate 16 Blood Pressure [Ri ght Arm] 107/67 Pulse Oximetry 99 Oxygen Delivery Me thod Room Air Documenting provider has reviewed patient's vital signs: yes OB - DS: Summary Hospital Course Hospital Course: Karla is a 17 y.o. G 1 P 1 who was admitted to [facility] for induction of labor for post-dates. ?She had a section that was complicated by hemorrhage. The patient feels well. ?The pain is well controlled with current medications. ?She has no new complaints. ?She is breast feeding and reports things are going well. the patient has done well.? Vitals have been stable.? She has remained afebrile.? Has a good appetite, is tolerating a general diet. ?She is voiding without difficulty.? She is passing gas and has had a bowel movement.? She is ambulating and denies any dizziness.? Has small amount of rubra lochia. She is undecided on prevention. Problems: Anemia plan: Discharge home with baby. Follow up in 2 weeks and 6 weeks. , may see if needed Hgb 8.4. Iron supplement ordered orally every other day Peripartum Data Infant delivery method: Primary C/S; Labored Laceration description: None Procedures: Procedures Operation Date: 10/07/23 21:45 Actual Procedure Side Surgeon p Section Not Applicable Ignacia Chand MD complications: uterine atony (Bakri placed after delivery, bleeding WNL post-removal) [place] Gender: Female Discharge Plan: Home Status at Discharge Functional status at discharge: independent ambulation Overall status at discharge: patient is progressing back to baseline Time Spent with Patient Time attestation: Total time spent providing and/or coordinating discharge services: Time spent: Less than 30 minutes Discharge Plan Discharge Disposition: Home, Self-Care Date of Admission: 10/07/23 06:52 Attending Provider on Discharge: Lorie Dinh Consulting Providers: Ignacia Chand Primary Care Provider: Provider,Not a Local Condition: Stable Anticipated Discharge Date/Time: 10/09/23 12:00 Discharge Medications: New acetaminophen 500 mg Tablet 1,000 mg PO Q6H PRNQty: 0 0RF ferrous sulfate 325 mg (65 mg iron) Tablet 325 mg PO Q48H Qty: 60 0RF docusate sodium 100 mg Capsule 100 mg PO BID PRN (Reason: constipation) Qty: 90 0RF ibuprofen 600 mg Tablet 600 mg PO Q6H PRN (Reason: Pain) Qty: 60 0RF oxycodone 5 mg Tablet 5 - 10 mg PO Q4H PRN (Reason: Pain) Qty: 15 0RF Continued DHA 200 mg capsule 200 mg PO DAILY acetaminophen [Tylenol Extra Strength] 500 mg tablet 1,000 mg PO Q6H PRN metoclopramide HCl [Reglan] 10 mg tablet 10 mg PO Q6-8H PRN (Reason: headache) Qty: 20 0RF Rx Instructions: Take with Tylenol. sertraline 100 mg tablet 100 mg PO QDAY Qty: 90 0RF Discharge Orders: Discharge Order (Routine); Ordered 10/09/23 Ordered By: Lorie Dinh Patient Education: OB Over the Counter Medication Information, OB /Breast Feeding Additional Instructions: Discharge instructions were reviewed with the patient including signs and symptoms of infection and home going medications Lifting Restrictions: 20 pounds for 6 weeks No not submerge incision under water X 2 weeks? Nothing vaginally for 6 weeks: no tampons or intercourse Do not drive while taking narcotic pain medication(s) Off Work or School for 8 weeks 2-week visit: incision check, discuss feeding concerns, review control options and screen for anxiety/depression. 6-week visit for an annual exam. consultation services are available to all mothers and babies for the first year after delivery.? To make an appointment, please call [phone]. Activity Level: Activity as Tolerated Discharge Diet: Regular Follow Up Appointments: [facility] [Provider Group] Forms: MyHealth Info Instructions
== END 2023-10-09 14:55 | disposition home or self-care (01) | DRG 540 ==
PROVIDERS: Admitting Provider Advanced Practice Midwife; Visit Provider Obstetrics & Gynecology
PROC: 10D00Z1 Extraction of Products of Conception, Low, Open Approach (ICD-10-PCS; CPT 59514; principal; 2023-10-07 21:30)
DX: O48.0 Post-term pregnancy (principal); O99.344 Other mental disorders complicating childbirth; F41.9 Anxiety disorder, unspecified; F32.A Depression, unspecified; M41.20 Other idiopathic scoliosis, site unspecified; O76 Abnormality in fetal heart rate and rhythm complicating labor and delivery; O72.1 Other immediate postpartum hemorrhage; O90.81 Anemia of the puerperium; D64.9 Anemia, unspecified; G89.18 Other acute postprocedural pain; Z3A.41 41 weeks gestation of pregnancy; Z37.0 Single live birth
CPT/HCPCS: 01967; 01968; 36415; 59200; 64488; 76942; 85018; 85025; 85049; 85461; 86850; 86870; 86880; 86900; 86901; 88307; 99140; A9270; C9290; J0456; J0665; J0690; J1885; J2210; J2250; J2274; J2371; J2405; J2590; J2791; J2795; J3010; J7050; J7120

== ENCOUNTER 2024-01-29 09:33 | Outpatient (CLI) | payer BC, SELFPAY ==
--- OUTSIDE RECORDS SUMMARY | 2024-01-29 09:36 | XMS_ITS | Clinical Summary ---
Author Name Unknown Organization [facility] Address [address] [place] [id number] Care Team Providers Care Sliver Chopper Name Role Phone No Ref-Primary, Physician Primary Care Provider Allergies No known active allergies Medications Medication Sig Dispensed Refills Start Date End Date Status metoclopramide (REGLAN) 10 MG tablet Take 1 tablet (10 mg) by mouth 4 times daily as needed (headache or nausea) 20 tablet 03/01/2023 Active Social History Tobacco Use Types Packs/Day Years Used Date Smoking Tobacco: Never Assessed Adolescent Education Answer Date Record ed Getting School Help Needed Not on file 06/29 Sex and Gender Information Value Date Recorded Sex Assigned at Not on file Gender Identity Not on file Sexual Orientation Not on file Last Filed Vital Signs Vital Sign Reading Time Taken Comments Blood Pressure 116/58 03/01/2023 1:30 PM CDT Pulse 95 03/01/2023 1:30 PM CDT Temperature 36.4 ??C (97.5 ??F) 03/01/2023 11:46 AM C DT Respiratory Rate 16 03/01/2023 11:46 AM CDT Oxygen Saturation 100% 03/01/2023 1:30 PM CDT Inhaled Oxygen Concentration - - Weight 60 kg (132 lb 3.2 oz) 03/01/2023 11:46 AM CDT Height 162.6 cm (5' 4) 03/01/2023 11:46 AM CDT Body Mass Index 22.69 03/01/2023 11:46 AM CDT Plan of Treatment Health Maintenance Due Date Last Done Comments ADVANCE CARE PLANNING 2003 ANNUAL REVIEW OF HM ORDERS 2003 CHLAMYDIA SCREENING 2003 HIV SCREENING 2018 HPV IMMUNIZATION (1 - 3-dose series) 2018 HEPATITIS C SCREENING 2021 COVID-19 Vaccine ( season) 2023 INFLUENZA VACCINE (#1) 2023 PHQ-2 (once per calendar year) 2023 YEARLY PREVENTIVE VISIT 01/10/2024 01/09/2023 DTAP/TDAP/TD IMMUNIZATION (8 - Td or Tdap) 04/25/2031 04/25/2021, 10/19/2016, 06/02/2009, Additional history exists HEPATITIS B IMMUNIZATION Completed 005, 08/17/2004, 02/02/2004 Pneumococcal Vaccine: Pediatrics (0 to 5 Years) and At-Risk Patients (6 to 64 Years) Completed 12/01/2004, 10/10/2004, 08/17/2004, Additional history exists IPV IMMUNIZATION Completed 06/02/2009, 10/2007, 08/17/2004, Additional history exists MENINGITIS IMMUNIZATION Completed 04/25/2021, 10/19 RSV MONOCLONAL ANTIBODY Aged Out No l onger eligible based on patient's age to complete this topic Care Teams Sliver Chopper Relationship Specialty Start Date End Date No Ref-Primary, Physician PCP - General 03/01/23
--- OUTSIDE RECORDS SUMMARY | 2024-01-29 09:36 | XMS_ITS | Clinical Summary ---
Author Name Unknown Organization [email or web address] [facility] Address [place], [place] [address] Care Team Providers Care Radiation / Chemistry Technician Name Role Phone Kim Mancini NP Primary Care Provider Allergies No known active allergies Medications Medication Sig Dispensed Refills Start Date End Date Status escitalopram oxalate (LEXAPRO) 10 mg tabletIndications:Chloe r depressive disorder with current active episode, unspecified depression episode severity, unspecified whether recurrent Take 1 Tablet (10 mg) by mouth every morning. 30 Tablet 01/09/2023 Active levonorgestrel-ethinyl estradiol (SEASONALE) 0.15 mg-30 mcg (91) tabletIndications:BCP ( control pills) initiation Take 1 Tablet by mouth once daily. 91 Tablet 01/09/2023 Active Active Problems No known active problems Immunizations Name Administration Dates Next Due DTaP 06/02/2009, 8,10/10/2004,08/17/2004 ,02/02/2004 Hepatitis A (Peds) 06/02/2009 Hepatitis B, Unspecified 12/01/2004,08/17/2004,0 02/02/2004 Hib Conjugate, Unspecified 12/01/2004,08/17/2004 ,02/02/2004 Inactivated Polio Vaccine 06/02/2009,11/07/2007 MMR 06/02/2009,02/26/2005 Meningococcal Vaccine (Menactra) 04/25/2021 Meningococcal Vaccine (Menveo) 10/19/2016 Pneumococcal, Unspecified 12/01/2004,10/10/2004, 08/17/2004,02/02/2004 Polio Virus, Unspecified 08/17/2004,02/02/2004 Tdap 04/25/2021,10/19/2016 Varicella Vaccine 06/02/2009,11/07/2007 Family History Medical History Relation Name Comments No Known Problems Father No Known Problems Mother Relation Name Status Comments Father Alive Mother Alive Social History Tobacco Use Types Packs/Day Years Used Date Smoking Tobacco: Never Smokeless Tobacco: Never Tobacco Cessation:Counseling Given: Not Answered Alcohol Use Standard Drinks/Week Comments Never 0 (1 standard drink = 0.6 oz pur e alcohol) PHQ-2 Answer Date Recorded PHQ-2 TOTAL SCORE 2 01/09/2023 Social Connections Answer Date Recorded Frequency of Communication with Friends and Fami ly Not on file 01/09/2023 Sex and Gender Information Value Date Recorded Sex Assigned at Not on file Gender Identity Not on file Sexual Orientation Not on file Obstetrics History Last Filed Vital Signs Vital Sign Reading Time Taken Comments Blood Pressure 109/72 01/09/2023 10:15 AM CDT Pulse 99 01/09/2023 10:15 AM CDT Temperature - - Respiratory Rate - - Oxygen Saturation - - Inhaled Oxygen Concentration - - Weight 59.6 kg (131 lb 6.4 oz) 01/09/2023 10:15 AM CDT Height 164.5 cm (5' 4.76) 01/09/2023 10:15 AM C DT Body Mass Index 22.03 01/09/2023 10:15 AM CDT Plan of Treatment Health Maintenance Due Date Last Done Comments HIV for age 15-65 2018 HPV series for age 9-26 (1 - 3-dose series) 2018 Chlamydia for age 16-24 2019 Hepatitis C screening for age 18-79 2021 COVID-19 vaccine series ( - 2022- season) 2023 BMI (ht and wt on same day) for age 18+ 01/10/2024 01/09/2023 Depression screening for age 12+ 01/10/2024 01/09/2023 Well Child Check for age 3-20 01/10/2024 01/09/2023 Influenza for age 9-49 06/07/2024 Tetanus booster 04/25/2031 04/25/2021, 10/19/2016 Pneumococcal series for age 6-64 Aged Out 12/01/2004, 10/10/2004, 08/17/2004, Additional history exists No longer eligible based on patient's age to complete this topic Meningococcal series for age 11-21 Completed 04/25/2021, 10/19/2016 Tdap Completed 04/25/2021, 10/19/2016 Care Teams Radiation / Chemistry Technician Relationship Specialty Start Date End Date Kim Mancini NP [address] [place] [address] PCP - General Nurse Practitioner - Family 01/09/23
--- OUTSIDE RECORDS SUMMARY | 2024-01-29 09:36 | XMS_ITS | Referral Summary ---
Author Name Unknown Organization [facility] Address [address] [place] [id number] Care Team Providers Care Process Control Board Operator Name Role Phone No Ref-Primary, Physician Primary [...] 03/01/2023 11:46 AM CDT Plan of Treatment Not on file Care Teams Process Control Board Operator Relationship Specialty Start Date End Date No Ref-Primary, Physician PCP - General 03/01/23
== END 2024-01-29 09:34 | disposition home or self-care (01) ==
PROVIDERS: PCP Family Medicine; Visit Provider Family Medicine
DX: D64.9 Anemia, unspecified (principal); R53.83 Other fatigue; Z13.220 Encounter for screening for lipoid disorders; Z11.3 Encounter for screening for infections with a predominantly sexual mode of transmission
CPT/HCPCS: 80053; 80061; 82728; 84443; 87491; 87591

== ENCOUNTER 2024-03-18 14:22 | Outpatient (CLI) | payer BC, SELFPAY ==
--- OUTSIDE RECORDS SUMMARY | 2024-03-18 14:25 | XMS_ITS | Clinical Summary ---
Author Organization [facility] Address [address] [place] [id number] Care Team Providers Care Forklift Picker Name Role Phone No Ref-Primary, Physician Primary [...] SCREENING 2021 COVID-19 Vaccine ( season) 2023 PHQ-2 (once per calendar year) 2023 YEARLY PREVENTIVE VISIT 01/10/2024 01/09/2023 INFLUENZA VACCINE (Season Ended) 2024 DTAP/TDAP/TD IMMUNIZATION (8 - Td or Tdap) [...] age to complete this topic Care Teams Forklift Picker Relationship Specialty Start Date End Date No Ref-Primary, Physician PCP - General 03/01/23
--- OUTSIDE RECORDS SUMMARY | 2024-03-18 14:26 | XMS_ITS | Referral Summary ---
Author Organization [facility] Address [address] [place] [id number] Care Team Providers Care Kelp Cutter Name Role Phone No Ref-Primary, Physician Primary [...] of Treatment Not on file Care Teams Kelp Cutter Relationship Specialty Start Date End Date No Ref-Primary, Physician PCP - General 03/01/23
--- OUTSIDE RECORDS SUMMARY | 2024-03-18 14:26 | XMS_ITS | Clinical Summary ---
Author Organization [facility] [place], [place] [address] Care Team Providers Care Plate Take Out Worker Name Role Phone Kim Mancini NP Primary [...] 10/19/2016 Tdap Completed 04/25/2021, 10/19/2016 Care Teams Plate Take Out Worker Relationship Specialty Start Date End Date Kim Mancini NP [address] [place] [address] PCP - General Nurse Practitioner - Family 01/09/23
[2024-03-18 16:43] LABS: Chlamydia DNA Amplified* NOT DETECTED (No Detected); GC DNA Amplified* NOT DETECTED (No Detected)
== END 2024-03-18 14:23 | disposition home or self-care (01) ==
PROVIDERS: PCP Family Medicine; Visit Provider Registered Nurse
DX: N92.0 Excessive and frequent menstruation with regular cycle (principal); D64.9 Anemia, unspecified
CPT/HCPCS: 84443; 87491; 87591

== ENCOUNTER 2025-03-17 12:17 | Outpatient (CLI) | payer BC, SELFPAY ==
[2025-03-17 18:35] LABS: Chlamydia DNA Amplified* NOT DETECTED (No Detected); GC DNA Amplified* NOT DETECTED (No Detected)
== END 2025-03-17 12:18 | disposition home or self-care (01) ==
PROVIDERS: PCP Family Medicine; Visit Provider Registered Nurse
DX: Z11.3 Encounter for screening for infections with a predominantly sexual mode of transmission (principal); Z12.4 Encounter for screening for malignant neoplasm of cervix
CPT/HCPCS: 87491; 87591; 87624; 87625; 88141; 88142